=== PATIENT | female | born 1985 | race Caucasian/White ===

== ENCOUNTER 2017-03-14 01:05 | Inpatient (IN) | payer MEDICAID, OTHER ==
[~2017-03-14] VITALS: Ht 154.9 cm; Wt 67.9 kg
[2017-03-14 01:25] VITALS: BP 130/80; PULSE 93; RESP 18
[2017-03-14 01:26] VITALS: BMI 28.3
--- NOTE | 2017-03-14 02:10 | HP ---
Date/Time of Note Date/Time of Note DATE: 03/14/17 TIME: 02:08 OB - History Hx of Present Free Text/Dictation 38+6 : 1 Para: 0 Care: Good Care Ultrasounds: Normal mid trimester US Obstetrical Complications: None Medical Complications: None Past Family/Social History * Past Medical, Surgical, Family and Obstetric Histories reviewed from chart. OB Admission Exam Vital Signs Vital Signs Vital Signs Date Time Temp Pulse Resp B/P Pulse Ox O2 Delivery O2 Flow Rate FiO2 03/14/17 01:25 100.4 93 18 130/80 Physical Exam Abdomen: WNL Extremities: Normal Cervical Dilatation: 1cm Effacement: 75% Station: -1 Membranes: Ruptured Heart Rate: 140's Accelerations: Accelerations Present Decelerations: No Decelerations Varibility: Moderate Contractions on Admission: 6-10 Minutes Apart OB Assessment/Plan Reason for admission: rupture of membranes Induction Method: per Pitocin Protocol AMBER DOYLE M.D. Mar 14, 2017 02:09
[2017-03-14] MEDS ORDERED: METHYLERGONOVINE 0.2 MG INJ IM PRN ×3 (02:30→23:00)
[2017-03-14] MEDS ORDERED: BUTORPHANOL 2 MG INJ IV PRN (02:30)
[2017-03-14] MEDS ORDERED: LIDOCAINE 1% (MPF) 30 ML INJ INJ PRN (02:30)
[2017-03-14] MEDS ORDERED: OXYTOCIN 30 UNITS/LR 500 ML IV SCH ×3 (02:30→20:00)
[2017-03-14] MEDS ORDERED: MISOPROSTOL 200 MCG TAB PR PRN ×3 (02:30→23:00)
[2017-03-14] MEDS ORDERED: LACTATED RINGER'S 1,000 ML IV PRN (02:30)
[2017-03-14] MEDS ORDERED: CARBOPROST 250 MCG INJ IM PRN ×3 (02:30→23:00)
[2017-03-14] MEDS ORDERED: IBUPROFEN 600 MG TAB PO PRN (02:30)
[2017-03-14] MEDS ORDERED: AMPICILLIN 2 GM/NS (PMX) 100 ML IV ONE (02:30)
[2017-03-14] MEDS ORDERED: OXYTOCIN 30 UNITS/LR 500 ML IV PRN ×3 (02:30→23:00)
--- NOTE | 2017-03-14 02:33 | TRIAGE ---
OB Triage Datetime Report Generated by CPN: 03/14/2017 02:33 Datetime: 03/14/2017 02:29 Labor Evaluation Frequency: 1-4 Monitor Mode: External Duration (sec)2399: 50-70 Quality: Mild Pattern: Normal: <= 5 Contractions in 10 Minutes Resting Tone [place]: Relaxed Heart Rate FHR Baseline Rate: 145 Monitor Mode: External US FHR Baseline Changes: No Baseline Change Variability: Moderate 6-25 bpm Accelerations: 15X15 Decelerations: None Category: Category I Datetime: 03/14/2017 01:37 Membrane Status: Ruptured Datetime: 03/14/2017 01:30 Assessment Type: Triage Maternal Assessment Level of Consciousness: Fully Conscious DTR's/Clonus: DTRs 2+; No Clonus Headache: Denies Blurred Vision: No Respiratory Effort: Unlabored; Regular Rhythm; Equal Expansion Breath Sounds, Left: Clear and Equal Breath Sounds, Right: Clear and Equal Nausea/Vomiting: Denies RUQ Epigastric Pain: Denies Facial Edema: None Fall Risk Assessment History of Falling: (0) No Secondary Diagnosis: (0) No Ambulatory Aid: (0) Bedrest/Nurse Assist IV Therapy: (0) No Gait: (0) Normal/Bedrest/Immobile Mental Status: (0) Oriented to Own Ability Fall Score: 0 Fall Risk Score Definition: No Risk: No action required Comment: PT PRESENTED TO TRIAGE C_O SROM CLEAR FLUID. UC EVERY 1-3 MINUTES. PAIN 1/10 PLACED ON EF M CALL LIGHT WITHIN REACH. FOB AND FAMILY AT BEDSIDE. Datetime: 03/14/2017 01:21 Vaginal Exam Dilatation (cms): 1.5 Effacement (%): 90 Station: -3 Exam By: Amaury Vaginal Bleeding: None Cervix, Consistency: Soft Presentation 'A': Cephalic Datetime: 03/14/2017 01:18 Time of Arrival: 03/14/2017 01:03 EGA: 38.6 Arrived By: Ambulatory Arrived From: Home Chief Complaint: srom @ 2300 Movement: Present Contractions: Denies/Absent Time Contractions Began: 03/13/2017 23:30 Rupture of Membranes: Denies Vaginal Bleeding: Scant Vaginal Discharge: Denies Recent Sexual Intercouse: Denies Abdominal Trauma: Not Applicable Patient Complaints: Contractions Time Provider Notified: 03/14/2017 01:30 Provider Notified: Initial Plan: EFM, SROM, ADMIT TO L_D Datetime: 03/14/2017 01:16 Labor Evaluation Frequency: 1-3 Monitor Mode: External Duration (sec)2399: 50-70 Quality: Mild Pattern: Normal: <= 5 Contractions in 10 Minutes Resting Tone [place]: Relaxed Heart Rate FHR Baseline Rate: 135 Monitor Mode: External US FHR Baseline Changes: No Baseline Change Variability: Moderate 6-25 bpm Accelerations: 15X15 Decelerations: None Category: Category I
[2017-03-14] MEDS ORDERED: GENTAMICIN 80 MG/NS (PMX) 50 ML IVPB ONE (03:00)
[2017-03-14] MEDS: LACTATED RINGER'S 1,000 ML IV SCH ×4 (03:31→11:12)
[2017-03-14 03:42] VITALS: BP 121/73; PULSE 88; RESP 18
--- NOTE | 2017-03-14 03:48 | RADRPT ---
PROCEDURE: US OB. CLINICAL INDICATION: Spontaneous rupture of membranes. Clinical estimate gestational age is 38 weeks 6 days with estimated date of delivery 03/22/2017 TECHNIQUE: Multiple sonographic images of the pelvis were obtained. The images were reviewed on a PACS workstation. COMPARISON: 01/03/2017 FINDINGS: There is a single live intrauterine gestation. Cardiac activity is present with 139 beats per minut e. There is a cephalic presentation. Measurements were made in order to determine age. The results are as follows: BPD =9.53 cm, 38 weeks 6 days HC =33.11 cm, 37 weeks 5 days AC =34.61 cm, 38 weeks 4 days FL =7.39 cm, 37 weeks 6 days Estimated gestational age of approximately 38 weeks 2 days. The estimated date of delivery is 03/26/2017. The EFW = 3457 g, 7 pounds 10 ounces, 54.6% . The placenta is fundal and grade II. There is no evidence for an abruption. IMPRESSION: Single live intrauterine gestation of approximately 38 weeks 2 days based on ultrasound measurements . The estimated date of delivery is 03/26/2017 . There is appearance of decreased amniotic fluid. D iscussed with Amaury Stokes, Labor and Delivery Charge R.N. at 03:45 a.m. on 03/14/2017. RPTAT: HJES .Gerson Browne MD, Date Time Electronically viewed and signed by .Gerson Browne MD, on 03/14/2017 03:48 .S/
[2017-03-14 04:07] LABS: ADD SCAN DIFF NO
[2017-03-14 04:19] LABS: BASOPHILS % 0.2 % (0.0-2.0); EOSINOPHILS % 0.3 % (0.0-7.0); HEMOGLOBIN 11.4 g/dl (12.0-16.0); LYMPHOCYTES # 1.4 10^3/ul (0.8-2.9); LYMPHOCYTES % 15.2 % (15.0-51.0); MEAN CORPUSCULAR HGB CONC 33.5 g/dl (32.0-37.0); MEAN CORPUSCULAR VOLUME 89.5 fl (82.0-101.0); MEAN PLATELET VOLUME 11.3 fl (7.4-10.4); MONOCYTE # 0.5 10^3/ul (0.3-0.9); MONOCYTES % 5.1 % (0.0-11.0); NEUTROPHIL # 7.4 10^3/ul (1.6-7.5); NEUTROPHILS % 78.6 % (39.0-77.0); PLATELET COUNT 158 10^3/UL (140-415); RED CELL DISTRIBUTION WIDTH 13.2 % (11.5-14.5); WHITE BLOOD COUNT 9.4 10^3/ul (4.8-10.8)
[2017-03-14 04:28] LABS: INR 1.03; PROTIME 13.5 Sec (12.2-14.2); PT RATIO 1.1
[2017-03-14 04:29] LABS: PARTIAL THROMBOPLASTIN TIME 24.1 Sec (25.0-35.0)
[2017-03-14 04:43] VITALS: Ht 154.9 cm; Wt 67.9 kg
[2017-03-14] MEDS ORDERED: LACTATED RINGER'S 1,000 ML IV ONE (04:49)
[2017-03-14] MEDS ORDERED: CITRIC ACID/NA CITRATE 30 ML CUP PO ONE (05:00)
[2017-03-14] MEDS ORDERED: ONDANSETRON 4 MG INJ IV PRN ×2 (05:00→22:00)
[2017-03-14] MEDS ORDERED: morphine 2 MG INJ IV PRN ×2 (05:00)
[2017-03-14] MEDS ORDERED: ONDANSETRON 4 MG INJ IV ONE (05:00)
[2017-03-14] MEDS ORDERED: PROCHLORPERAZINE 10 MG INJ IV PRN (05:00)
[2017-03-14] MEDS ORDERED: NALOXONE (0.4 MG/ML) INJ IV PRN ×2 (05:00→22:00)
[2017-03-14] MEDS ORDERED: DIPHENHYDRAMINE 50 MG INJ IV PRN ×2 (05:00→22:00)
[2017-03-14] MEDS ORDERED: FENTAnyl 2MCG/ML-ROPIV 0.2% 100 ML ONE (05:01)
[2017-03-14] MEDS: AMPICILLIN 1 GM/NS (PMX) 50 ML IV SCH ×5 (09:04→22:30)
[2017-03-14] MEDS: FENTAnyl 2MCG/ML-ROPIV 0.2% 100 ML BAG EPI SCH ×2 (12:12→17:42)
[2017-03-14] MEDS ORDERED: ACETAMINOPHEN 325 MG TAB PO PRN (12:37)
[2017-03-14] MEDS ORDERED: AZITHROMYCIN 500MG/NS (PMX) 250 ML IVPB ONE (13:00)
[2017-03-14] MEDS ORDERED: GENTAMICIN 120 MG/NS (PMX) 100 ML IVPB ONE (19:00)
[2017-03-14] MEDS ORDERED: MINERAL OIL LIGHT 10 ML VIAL TOP PRN (19:30)
[2017-03-14] MEDS ORDERED: CEFAZOLIN 2 GM/50 ML (PMX) 50 ML IV SCH (20:00)
--- NOTE | 2017-03-14 20:50 | PN ---
Date/Time of Note Date/Time of Note DATE: 03/14/17 TIME: 20:43 OB Subjective Subjective Subjective Called by RN due to variable deceleration with pushing. Patient had been managed by Dr. Ramírez during her intraoperative course. Was noted to admitted post rupture membrane at 2300 last night with a fever. She has given 1 dose of azithromycin as well as ampicillin. Attended to the patient bedside. Comfortable with epidural. Had been pushing for a 3 hours. . Occasional deceleration with pushing noted that resolves. Patient has been afebrile. Has been complete for > 4 hours OB Objective Objective Objective GA: Alert and oriented 4, appears to be in mild distress Vaginal examination: Complete/complete/large With noted. Vertex at 0-+1 Position possible NST: Category 2 baseline: 160s, Moderate variability noted OB Assessment/Plan Other Assessment: IUP at 38 weeks and 6 days Admitted in labor Currently in second stage of labor. Chorioamnionitis based on maternal fever and tachycardia Status post ampicillin and azithromycin. Gentamicin started first dose Trial patient with the patient done. Does not move the vertex with maternal pushing. heart tracing: Category 2 Does not meet the criteria for vacuum extraction Discussed with the patient regarding section. Risk and benefit including risk of infection, bleeding damage to surrounding structures including bowel and bladder and risk of blood transfusion including but not limited to blood borne infection including HIV hepatitis B and C and transfusion reaction discussed with the patient Patient agreed to proceed with primary section due to arrest of descent and chorioamnionitis OR and NICU was informed Understand above risks and will accept blood in case if necessary. All questions were answered to the patient's best satisfaction. HERIBERTO FOSTER MD Mar 14, 2017 20:49
[2017-03-14] MEDS ORDERED: morphine SULFATE/PF (10 MG/10 ML) INJ ONE (21:07)
[2017-03-14] MEDS ORDERED: LIDOCAINE 2% (SDV) 5 ML INJ ONE (21:07)
[2017-03-14] MEDS ORDERED: ONDANSETRON 4 MG INJ ONE (21:25)
[2017-03-14] MEDS ORDERED: KETOROLAC 30 MG INJ ONE (21:25)
[2017-03-14] MEDS ORDERED: OXYTOCIN 10 UNIT INJ ONE (21:25)
[2017-03-14] MEDS ORDERED: DEXAMETHASONE 4 MG/ML 1 ML INJ ONE (21:25)
[2017-03-14] MEDS ORDERED: METOCLOPRAMIDE 10 MG INJ ONE (21:25)
[2017-03-14] MEDS ORDERED: FENTAnyl 50 MCG/ML VIAL ONE (21:27)
[2017-03-14] MEDS ORDERED: MEPERIDINE 100 MG INJ ONE (21:42)
[2017-03-14] MEDS ORDERED: NALBUPHINE HCL (10 MG/1 ML) INJ IV PRN (22:00)
[2017-03-14] MEDS ORDERED: HYDROmorphONE 1 MG/ML SYG IV PRN (22:00)
[2017-03-14] MEDS ORDERED: ACETAMINOPHEN 500 MG TAB PO PRN (22:00)
[2017-03-14] MEDS ORDERED: morphine 4 MG/ML VIAL IV PRN (22:00)
[2017-03-14] MEDS ORDERED: KETOROLAC 30 MG INJ IV PRN (22:00)
[2017-03-14] MEDS ORDERED: HYDROCODONE/APAP (5/325) TAB PO PRN (22:00)
[2017-03-14] MEDS ORDERED: METHYLERGONOVINE 0.2 MG TAB PO PRN (23:00)
[2017-03-14] MEDS ORDERED: LANOLIN 7 GM TUBE TOP PRN (23:00)
--- NOTE | 2017-03-14 23:04 | OPR ---
Operative Report Planned Procedure Procedure date Mar 14, 2017 Procedure(s) Primary low transverse section Via Pfannenstiel skin incision Performed by: HERIBERTO FOSTER MD Assisting provider: KRISSY FOSTER MD Anesthesiologist: LEANNE CRUMP MD Pre-procedure diagnosis 1. Arrest of descent 2. Chorioamnionitis 3 occiput posterior. Anesthesia Type: epidural Procedure Description Under satisfactory [spinal] anesthesia, the patient was prepped and draped and placed in a supine position, tilted to the left. Pfannenstiel incision was made , carried through the subcutaneous tissue. Bleeders brought under control with electrocautery. Fascia incised to the length of the incision. Rectus muscles from the fascia, divided midline. Peritoneum exposed, entered through a transverse incision. Exploration of abdomen revealed gravid uterus. Bladder flap was developed. Transverse incision was made in the lower segment of the uterus. Amniotic sac ruptured. [Thick meconium ] amniotic fluid noted. [Then the baby's head was grasped and was noted to be in occiput posterior position. It was brought up to the incision and was delivered through the incision. After the delivery of the head anterior and the posterior shoulder and the rest of the body delivered without any complication. Immediately after delivery, since the baby cried actively ] Nasal oropharyngeal suction was performed. The baby was handed to the team for immediate attention. The placenta was delivered manually intact. Placenta was sent to culture and pathology. uterine cavity was cleaned with wet sponge and drainage established. Uterus closed in 2 layers using [] in continuous fashion using 1 Monocryl. . Peritoneal cavity irrigated with warm saline. Excellent hemostasis of the incision was performed. At the end fibrillar was placed over the incision. Massive irrigation of the gutters were performed using warm saline. Then the parietal peritoneum repaired using 2-0 Vicryl in a continuous fashion and rectus muscle was reapproximated using 2-0 Vicryl. Then the fascia was repaired using 1-0 PDS. Sponge, needle and instrument count reported to be correct. Abdominal peritoneum closed with 2-0 Vicryl [] continuously. Rectus muscle approximated with 2-0 Vicryl []. Fascia closed with 1-0 PDS [], and skin closed with 3-0 Monocryl in a continuous fashion. Estimated blood loss 800[]mL. Urine bag contained []mL of urine Post-Procedure Findings: Live Baby [], Apgars [] and [], weight [], position [], [] presentation []cord. Physician Certification I, the undersigned physician, hereby certify that I have discussed the procedure described in this consent form with this patient (or the patient's legal fuels sales representative), including: * The risk and benefits of the procedure; * Any adverse reactions that may reasonably be expected to occur; * Any alternative efficacious methods of treatment which may be medically viable ; * The potential problems that may occur during recuperation; * Potential for blood transfusion and associated risks/benefits; and * Any research or economic interest I may have regarding this treatment. I further certify that the patient/legally responsible person was encouraged to ask question and that all questions were answered. HERIBERTO FOSTER MD Mar 14, 2017 23:04
[2017-03-15] MEDS: OXYTOCIN 30 UNITS/LR 500 ML IV SCH ×2 (00:46→01:45)
[2017-03-15] MEDS: HYDROmorphONE 1 MG/ML SYG IV PRN ×3 (01:36→16:14)
--- NOTE | 2017-03-15 01:40 | OPPN ---
Date/Time of Note Date/Time of Note DATE: 03/15/17 TIME: 01:40 Post-Anesthesia Notes Post-Anesthesia Note Last documented vital signs Vital Signs Date Time Temp Pulse Resp B/P Pulse Ox O2 Delivery O2 Flow Rate FiO2 03/14/17 03:42 99.5 88 18 121/73 Room Air Activity: WNL Respiratory function: WNL Cardiovascular function: WNL Mental status: Baseline Pain reasonably controlled: Yes Hydration appropriate: Yes Nausea/Vomiting absent: Yes DEIDRE MAZARIEGOS MD Mar 15, 2017 01:40
[2017-03-15 02:45] VITALS: BP 145/83; PULSE 89; RESP 18
[2017-03-15 04:00] VITALS: BP 113/71; PULSE 78; RESP 19
[2017-03-15] MEDS ORDERED: CLINDAMYCIN 900 MG/D5W (PMX) 50 ML IVPB SCH (06:00)
[2017-03-15] MEDS: LACTATED RINGER'S 1,000 ML IV SCH ×3 (06:32→22:56)
[2017-03-15 08:00] VITALS: BP 103/56; PULSE 76; RESP 16
[2017-03-15 08:33] LABS: ADD SCAN DIFF NO
[2017-03-15] MEDS: KETOROLAC 30 MG INJ IV PRN ×3 (08:40→21:01)
[2017-03-15 08:42] LABS: BASOPHILS % 0.2 % (0.0-2.0); EOSINOPHILS % 0.2 % (0.0-7.0); HEMATOCRIT 27.7 % (37.0-47.0); HEMOGLOBIN 9.5 g/dl (12.0-16.0); LYMPHOCYTES # 1.2 10^3/ul (0.8-2.9); MEAN CORPUSCULAR HEMOGLOBIN 30.7 pg (29.0-33.0); MEAN CORPUSCULAR HGB CONC 34.3 g/dl (32.0-37.0); MEAN CORPUSCULAR VOLUME 89.6 fl (82.0-101.0); MEAN PLATELET VOLUME 11.6 fl (7.4-10.4); MONOCYTE # 0.7 10^3/ul (0.3-0.9); MONOCYTES % 5.8 % (0.0-11.0); NEUTROPHIL # 10.3 10^3/ul (1.6-7.5); NEUTROPHILS % 83.2 % (39.0-77.0); RED BLOOD COUNT 3.09 10^6/ul (4.20-5.40); RED CELL DISTRIBUTION WIDTH 13.3 % (11.5-14.5); WHITE BLOOD COUNT 12.4 10^3/ul (4.8-10.8)
[2017-03-15 08:58] LABS: PLATELET COUNT 125 10^3/UL (140-415)
--- NOTE | 2017-03-15 11:23 | QN ---
Documentation Comment Under sterile condition and signed consent circumcision performed on baby Ross using Gomco 1.1 post circumcision instructions given to both bladder BENJAMIN JULIAN MD Mar 15, 2017 11:23
--- NOTE | 2017-03-15 12:30 | PN ---
Date/Time of Note Date/Time of Note DATE: 03/15/17 TIME: 12:29 OB Subjective Subjective Subjective Post day 1 Afebrile abdomen soft uterus firm lochia normal incision bowel sounds present but weak ambulation encouraged Laboratory Tests Test 03/15/17 08:04 White Blood Count 12.410^3/ul Red Blood Count 3.0910^6/ul Hemoglobin 9.5g/dl Hematocrit 27.7% Mean Corpuscular Volume 89.6fl Mean Corpuscular Hemoglobin 30.7pg Mean Corpuscular Hemoglobin Concent 34.3g/dl Red Cell Distribution Width 13.3% Platelet Count 23136^3/UL Mean Platelet Volume 11.6fl Neutrophils % 83.2% Lymphocytes % 10.0% Monocytes % 5.8% Eosinophils % 0.2% Basophils % 0.2% Nucleated Red Blood Cells % 0.0/100WBC Neutrophils # 10.310^3/ul Lymphocytes # 1.210^3/ul Monocytes # 0.710^3/ul Eosinophils # 0.010^3/ul Basophils # 0.010^3/ul Nucleated Red Blood Cells # 0.010^3/ul Current Medications Medications (Trade) Dose Ordered Sig/Balwinder Route PRN Reason Start Time Stop Time Status Last Admin Dose Admin Lactated Ringer's 1,000 ml @ 125 mls/hr Q8H IV 03/14/17 02:12 03/14/17 22:57 DC 03/14/17 11:12 Ampicillin 100 ml @ 100 mls/hr ONCE ONCE IV 03/14/17 02:30 03/14/17 03:29 DC 03/14/17 04:29 Ampicillin 50 ml @ 100 mls/hr Q4H IV 03/14/17 06:30 03/14/17 22:57 DC 03/14/17 17:03 Oxytocin/Lactated Ringer's 500 ml @ 0 mls/hr TITRATE IV 03/14/17 02:30 03/14/17 22:57 DC 03/14/17 10:41 Butorphanol Tartrate (Stadol) 2 mg Q2H PRN IV PAIN 03/14/17 02:30 03/14/17 22:57 DC Lidocaine 30 ml 30 ml ONCE PRN INJ EPISIOTOMY/TEARING 03/14/17 02:30 03/14/17 22:57 DC Oxytocin/Lactated Ringer's 500 ml @ 125 mls/hr ONCE IV 03/14/17 02:30 03/14/17 22:57 DC Ibuprofen 600 mg 600 mg ONCE PRN PO Mild Pain (Pain Score 1-3) 03/14/17 02:30 03/14/17 22:57 DC Lactated Ringer's 1,000 ml @ 2,000 mls/hr Q30M PRN IV PRE-EPIDURAL BOLUS 03/14/17 02:30 03/14/17 22:57 DC 03/14/17 03:30 Oxytocin/Lactated Ringer's 500 ml @ 0 mls/hr ONCE PRN IV For Hemorrhage Management 03/14/17 02:30 03/14/17 22:57 DC Methylergonovine Maleate (Methergine) 0.2 mg ONCE PRN IM VAGINAL BLEEDING 03/14/17 02:30 03/14/17 22:57 DC Carboprost Tromethamine (Hemabate) 250 mcg ONCE PRN IM VAGINAL BLEEDING 03/14/17 02:30 03/14/17 22:57 DC Misoprostol (Cytotec) 1,000 mcg ONCE PRN [place] VAGINAL BLEEDING 03/14/17 02:30 03/14/17 22:57 DC Naloxone HCl (Narcan) 0.1 mg Q2M PRN IV FOR RESP RATE 8 OR LESS 03/14/17 05:00 03/14/17 22:57 DC Ketorolac Tromethamine (Toradol) 30 mg Q6H PRN IV PAIN 03/14/17 05:00 03/15/17 21:24 03/15/17 08:40 Morphine Sulfate (morphine) 2 mg Q3H PRN IV PAIN LEVEL 1-5 03/14/17 05:00 03/14/17 22:57 DC Morphine Sulfate (morphine) 4 mg Q3H PRN IV PAIN LEVEL 6-10 03/14/17 05:00 03/14/17 22:57 DC Diphenhydramine HCl (Benadryl) 25 mg Q6H PRN IV ITCHING 03/14/17 05:00 03/14/17 22:57 DC Ondansetron HCl (Zofran Inj) 4 mg Q6H PRN IV NAUSEA AND/OR VOMITING 03/14/17 05:00 03/14/17 22:59 DC Prochlorperazine (Compazine Inj) 10 mg ONCE PRN IV NAUSEA AND/OR VOMITING 03/14/17 05:00 03/14/17 22:59 DC Fentanyl/ Ropivacaine 100 ml 100 ml EPIDURAL INFUSION EPI 03/14/17 05:00 03/14/17 22:59 DC 03/14/17 17:42 Lactated Ringer's (Lr) 1,000 ml @ 1,000 mls/hr Q1H ONCE IV 03/14/17 04:49 03/14/17 05:48 DC 03/14/17 19:52 Ondansetron HCl (Zofran Inj) 4 mg pre-procedure ONCE IV 03/14/17 05:00 03/14/17 05:19 DC Citric Acid/ Sodium Citrate 30 ml 30 ml PRE-OP ONCE PO 03/14/17 05:00 03/14/17 05:19 DC Fentanyl/ Ropivacaine 100 ml @ ud STK-MED ONCE .ROUTE 03/14/17 05:01 03/14/17 05:02 DC Azithromycin (Zithromax 500mg/ NS (Pmx)) 250 ml @ 250 mls/hr ONCE ONCE IVPB 03/14/17 13:00 03/14/17 13:59 DC 03/14/17 12:47 Acetaminophen 650 mg 650 mg Q6H PRN PO PAIN AND OR ELEVATED TEMP 03/14/17 12:37 03/14/17 22:57 DC 03/14/17 12:47 Gentamicin Sulfate (Gentamicin) 100 ml @ 200 mls/hr ONCE ONCE IVPB 03/14/17 19:00 03/14/17 19:29 DC 03/14/17 18:46 Mineral Oil 20 ml 20 ml ONCE PRN TOP VAG DELIVERY 03/14/17 19:30 03/14/17 22:57 DC 03/14/17 19:34 Cefazolin Sodium/ Dextrose 50 ml @ 100 mls/hr ONCE IV 03/14/17 20:00 03/14/17 22:57 DC Oxytocin/Lactated Ringer's 500 ml @ 125 mls/hr ONCE IV 03/14/17 20:00 03/14/17 22:57 DC Oxytocin/Lactated Ringer's 500 ml @ 0 mls/hr ONCE PRN IV For Hemorrhage Management 03/14/17 20:00 03/14/17 22:58 DC Methylergonovine Maleate (Methergine) 0.2 mg ONCE PRN IM VAGINAL BLEEDING 03/14/17 20:00 03/14/17 22:58 DC Carboprost Tromethamine (Hemabate) 250 mcg ONCE PRN IM VAGINAL BLEEDING 03/14/17 20:00 03/14/17 22:58 DC Misoprostol (Cytotec) 1,000 mcg ONCE PRN [place] VAGINAL BLEEDING 03/14/17 20:00 03/14/17 22:58 DC Lidocaine (Xylocaine 2% (Sdv)) 100 mg STK-MED ONCE .ROUTE 03/14/17 21:07 03/14/17 21:08 DC Morphine Sulfate (Duramorph) 10 mg STK-MED ONCE .ROUTE 03/14/17 21:07 03/14/17 21:08 DC Ondansetron HCl (Zofran Inj) 4 mg STK-MED ONCE .ROUTE 03/14/17 21:25 03/14/17 21:26 DC Metoclopramide HCl (Reglan) 10 mg STK-MED ONCE .ROUTE 03/14/17 21:25 03/14/17 21:26 DC Oxytocin (Oxytocin) 10 units STK-MED ONCE .ROUTE 03/14/17 21:25 03/14/17 21:26 DC Ketorolac Tromethamine (Toradol) 30 mg STK-MED ONCE .ROUTE 03/14/17 21:25 03/14/17 21:26 DC Dexamethasone (Decadron) 4 mg STK-MED ONCE .ROUTE 03/14/17 21:25 03/14/17 21:26 DC Fentanyl (Sublimaze) 100 mcg STK-MED ONCE .ROUTE 03/14/17 21:27 03/14/17 21:28 DC Meperidine HCl (Demerol) 100 mg STK-MED ONCE .ROUTE 03/14/17 21:42 03/14/17 21:43 DC Hydromorphone HCl (Dilaudid) 0.2 mg Q2H PRN IV PAIN LEVEL 1-5 03/14/17 22:00 03/15/17 21:24 Hydromorphone HCl (Dilaudid) 0.4 mg Q2H PRN IV PAIN LEVEL 6-10 03/14/17 22:00 03/15/17 21:24 03/15/17 04:48 Morphine Sulfate (morphine) 4 mg Q2H PRN IV PAIN LEVEL 6-10 03/14/17 22:00 03/15/17 21:24 Ketorolac Tromethamine (Toradol) 30 mg Q6H PRN IV PAIN LEVEL 6-10 03/14/17 22:00 03/17/17 21:59 UNV Acetaminophen (Tylenol Tab) 500 mg Q4H PRN PO PAIN LEVEL 1-3 03/14/17 22:00 03/15/17 21:24 Acetaminophen/ Hydrocodone Bitart ([place] (5/325)) 1 tab Q4H PRN PO PAIN LEVEL 4-6 03/14/17 22:00 03/15/17 21:24 Diphenhydramine HCl (Benadryl) 25 mg Q4H PRN IV PRURITUS 03/14/17 22:00 03/15/17 21:24 Nalbuphine HCl (Nubain) 10 mg Q4H PRN IV PRURITUS 03/14/17 22:00 03/14/17 22:58 DC Ondansetron HCl (Zofran Inj) 4 mg Q6H PRN IV NAUSEA AND/OR VOMITING 03/14/17 22:00 03/15/17 21:24 Naloxone HCl (Narcan) 0.2 mg Q2M PRN IV FOR RESP RATE 8 OR LESS 03/14/17 22:00 03/15/17 21:24 Miscellaneous Information DURAMORPH: 4 MG EPIDU... GIVEN NEURAXIAL XX 03/14/17 22:00 03/14/17 22:58 DC Lactated Ringer's 1,000 ml @ 125 mls/hr Q8H IV 03/14/17 22:56 03/15/17 06:32 Oxytocin/Lactated Ringer's 500 ml @ 125 mls/hr Q4H IV 03/14/17 22:56 03/15/17 06:55 DC 03/15/17 01:45 Methylergonovine Maleate (Methergine) 0.2 mg Q6H PRN PO VAGINAL BLEEDING 03/14/17 23:00 Acetaminophen/ Codeine Phosphate (Tylenol No.3) 2 tab Q4H PRN PO PAIN LEVEL 7-10 03/15/17 21:25 Ibuprofen (Motrin) 600 mg Q6 PO 03/16/17 00:00 Simethicone (Mylicon) 160 mg Q8H PRN PO DISTENSION/GAS/BLOATING 03/14/17 23:00 Lanolin (Lcn-A-Nqwzjy) 1 applic BEDSIDE MEDICATION PRN TOP BEDSIDE FOR JUAN TO NIPPLES 03/14/17 23:00 Diphtheria/ Tetanus/Acell Pertussis (Adacel) 0.5 ml ONCE ONCE IM* 03/17/17 09:00 03/17/17 09:01 Measles/Mumps/ Rubella Vaccine Live 0.5 ml 0.5 ml ONCE ONCE SC* 03/17/17 09:00 03/17/17 09:01 Oxytocin/Lactated Ringer's 500 ml @ 0 mls/hr ONCE PRN IV For Hemorrhage Management 03/14/17 23:00 Methylergonovine Maleate (Methergine) 0.2 mg ONCE PRN IM VAGINAL BLEEDING 03/14/17 23:00 Carboprost Tromethamine (Hemabate) 250 mcg ONCE PRN IM VAGINAL BLEEDING 03/14/17 23:00 Misoprostol 1000 mcg 1,000 mcg ONCE PRN [place] VAGINAL BLEEDING 03/14/17 23:00 03/15/17 01:34 Clindamycin HCl/ Dextrose 50 ml @ 50 mls/hr Q8H IVPB 03/15/17 06:00 03/15/17 06:59 DC 03/15/17 05:38 Gentamicin Sulfate (Gentamicin) 50 ml @ 104 mls/hr Q8H ONCE IVPB 03/14/17 03:00 03/14/17 23:21 BENJAMIN JEWELL MD Mar 15, 2017 12:30
[2017-03-15 16:00] VITALS: BP 103/53; PULSE 82; RESP 16
[2017-03-15 20:00] VITALS: BP 108/64; PULSE 86; RESP 18
[2017-03-16] MEDS: IBUPROFEN 600 MG TAB PO SCH ×5 (00:27→23:43)
[2017-03-16 03:30] VITALS: BP 113/56; PULSE 82; RESP 18
[2017-03-16] MEDS: ACETAMINOPHEN/CODEINE #3 TAB PO PRN ×4 (04:28→21:17)
[2017-03-16] MEDS: LACTATED RINGER'S 1,000 ML IV SCH (06:56)
[2017-03-16 07:40] VITALS: BP 125/77; PULSE 78; RESP 18
--- NOTE | 2017-03-16 14:38 | PN ---
Date/Time of Note Date/Time of Note DATE: 03/16/17 TIME: 14:37 OB Subjective Subjective Subjective Post date Abdomen uterus firm lochia normal incision dry bowel sounds present no bowel movement. Extremities normal, ambulation encouraged enema ordered BENJAMIN JULIAN MD Mar 16, 2017 14:38
[2017-03-16] MEDS ORDERED: NA PHOSPHATE/BIPHOS 133 ML ENEMA PR ONE (15:00)
[2017-03-16 15:30] VITALS: BP 127/59; PULSE 86; RESP 18
[2017-03-16 19:30] VITALS: BP 121/80; PULSE 84; RESP 84
[2017-03-17 04:30] VITALS: BP 130/85; PULSE 90; RESP 18
[2017-03-17] MEDS ORDERED: NA PHOSPHATE/BIPHOS 133 ML ENEMA PR ONE (04:33)
[2017-03-17] MEDS: ACETAMINOPHEN/CODEINE #3 TAB PO PRN ×3 (05:26→15:17)
[2017-03-17] MEDS: IBUPROFEN 600 MG TAB PO SCH ×2 (06:00→12:55)
[2017-03-17 08:20] VITALS: BP 127/77; RESP 16
[2017-03-17] MEDS ORDERED: MEASLES,MUMPS,RUBELLA VACCINE INJ SC* ONE (09:00)
[2017-03-17] MEDS ORDERED: DIPHTH/TET/ACEL PERTUSS (ADULT) 0.5 ML VIAL IM* ONE (09:00)
--- NOTE | 2017-03-17 12:16 | PD.PPDC ---
BODY AND FRAME MAN Discharge Instruction Condition Patient Condition: Good Diet Diet: Resume Regular Diet Wound/Drain Care Instructions Wound/Drain Care Instructions: Remove Steri Strips in 1 week Follow-up Follow-up with Physician: Week/Weeks Provider Information: Appointment clinic in 1 week for check Return to clinic for STAFF NURSE ANESTHETIST Instructions: Fever greater than 101 Chills Worsening abdominal pain Excessive Vaginal Bleeding More than 2 pads per hour Unable to tolerate diet OB Instructions: Breast Tenderness Depression Blurried Vision Headache Surgical Instructions: Incisional Drainage Incisional Redness BENJAMIN JULIAN MD Mar 17, 2017 12:16
--- NOTE | 2017-03-17 12:20 | DS ---
Date/Time of Note Date/Time of Note DATE: 03/17/17 TIME: 12:17 Discharge Summary Admission/Discharge Info Admit Date/Time Mar 14, 2017 at 01:35 Discharge Date/Time March 17, 2017 at 1215 Discharge Diagnosis Status third post day Patient Condition: Good Procedures Primary Hx of Present Illness Term primary due to nonreassuring heart tracing Hospital Course Satisfactory patient had no problem with urination or bowel movement her incision inspected found free of inflammation and infection discharge home with follow-up instruction in 1 week Follow-up Plan Appointment clinic in 1 week Primary Care Provider Care Physician No Primary Time spent on discharge: < 30 minutes BENJAMIN JULIAN MD Mar 17, 2017 12:20
== END 2017-03-17 17:22 | disposition home or self-care (01) | DRG 766 ==
LOC: OBT 01:05 → L-D 01:05 → OBT 01:35 → L-D 01:35 → PP1 03-15 02:30
PROVIDERS: ADMIT Obstetrics & Gynecology; ATTEND Obstetrics & Gynecology
PROC: 10D00Z1 Extraction of Products of Conception, Low, Open Approach (ICD-10-PCS; principal; 2017-03-14 22:00)
PROC: 3E00X4Z Introduction of Serum, Toxoid and Vaccine into Skin and Mucous Membranes, External Approach (ICD-10-PCS; 2017-03-17)
DX: O41.1230 Chorioamnionitis, third trimester, not applicable or unspecified (principal); O62.1 Secondary uterine inertia; Z23 Encounter for immunization; Z3A.38 38 weeks gestation of pregnancy; Z37.0 Single live birth
CPT/HCPCS: 62319; 76815; 85025; 85610; 85730; 86592; 86900; 86901; 87070; 88307; 90715; 94760; 99464; G0463; J0290; J0456; J0690; J1100; J1170; J1580; J1885; J2175; J2274; J2405; J2590; J2765; J3010; J7120